=== PATIENT | female | born 1985 | race Caucasian/White ===

== ENCOUNTER 2016-11-06 10:00 | Emergency (ER) | payer OTHER ==
[2016-11-06 10:09] VITALS: BP 163/106
--- NOTE | 2016-11-06 10:48 | ED GENERAL ADULT ---
History of Present Illness General Chief Complaint: Animal/Insect Bite Stated Complaint: DOG BITE RT HAND Source: patient Exam Limitations: no limitations Vital Signs & Intake/Output Vital Signs & Intake/Output Vital Signs Date Time Temp Pulse Resp B/P B/P Pulse O2 O2 Flow FiO2 Mean Ox Delivery Rate 11/06 1009 97.6 105 20 163/106 98 Room Air Allergies Coded Allergies: No Known Allergies (11/06/16) Triage Note: PT TO ED WITH DOG BITE TO RT INDEX FINGER. STATES WAS BIT BY OWN DOG BY ACCIDENT AND DOG IS UTD WITH THEIR SHOTS. PT STATES SHE IS UNSURE OF HER LAST TETANUS SHOT. NOTED PUNCTURE WOUND TO AREA. NO BLEEDING AT THIS TIME, DSG APPLIED IN TRIAGE. PT VERY ANXIOUS STATING THERE WAS ALOT OF BLOOD, WASHCLOTH THAT CONTAINED WOUND UPON ARRIVAL TO ED HAD SCANT AMT OF BLOOD ON IT. Triage Nurses Notes Reviewed? yes : No Patient currently breastfeeds: No HPI: 30-year-old right hand dominant female with a history of PCOS presenting with dog bite to her right index finger that occurred about one hour prior to arrival. Reports that she was playing with her dog when it got startled and accidentally bit her. The dog has no history of aggressive behavior and this has never happened before. Unsure of her last tetanus. States that her dog is up-to-date on all vaccines including rabies. Past History Travel History Traveled to [place] past 21 day No Medical History Any Pertinent Medical History? see below for history Renal: PCOS Surgical History Surgical History: non-contributory Psychosocial History What is your primary language German Tobacco Use: Never used Family History Hx Contributory? No Review of Systems Review of Systems Constitutional: Reports: no symptoms. Respiratory: Reports: no symptoms. Cardiovascular: Reports: no symptoms. GI: Reports: no symptoms. Skin: Reports: see HPI. Neurological/Psychological: Reports: no symptoms. Physical Exam Physical Exam General Appearance: well developed/nourished, no apparent distress, anxious, comfortable Head: atraumatic Respiratory: normal breath sounds, lungs clear Cardiovascular: regular rate/rhythm, normal peripheral pulses Neurologic/Psych: awake, alert, oriented x 3, normal mood/affect Skin: normal color, warm/dry, on exam there are 2 subcentimeter lacerations to the right index finger, one on the dorsal aspect between the DIP and PIP joints, one on the palmar aspect between the PIP and MCP, both wounds have good hemostasis and are superficial, understood to range of motion at the DIP/PIP/MCP joints, tendons intact, normal sensation to the radial/ulnar/median nerves, motor strength 5 out of 5 in all digits and 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 No CVA/TIA Diagnosis: No Severe Sepsis Present: No Septic Shock Present: No Progress Differential Diagnoses I considered the following diagnoses in my evaluation of the patient: [ Laceration versus tendon injury versus fracture versus rabies infection] Plan of Care: Current Medications Sig/Hui Start time Last Medication Dose Stop Time Status Admin Tetanus/Diphtheria 0.5 ML ONCE ONE 11/06 1100 UNVr Toxoids Adsorbed 11/06 1101 (Decavac) Tetanus updated. No need for rabies vaccines as patient's dog is currently up- to-date on all vaccines. No indication for suturing at this time, wounds cleansed with soap and water, bacitracin applied. Wounds dressed with Telfa and gauze. Given instructions on daily wound care and strict return precautions for any signs of infection. (GUILLERMINA CAMEJO,ERLINDA) Initial ED EKG: none Departure Departure Disposition: HOME OR SELF CARE Condition: Stable Clinical Impression Primary Impression: Dog bite Secondary Impressions: Finger laceration Referrals: UNKNOWN (PCP/Family) Additional Instructions: Make sure to keep your wounds clean and dry. Change your dressing once daily as instructed in the ED. Follow up with her primary care provider in 48 hours for reevaluation. Return to the ED for any new or worsening symptoms. Departure Forms: Customer Survey General Discharge Information Critical Care Note Critical Care Note Critical Care Time: non-applicable
== END 2016-11-06 11:24 ==
LOC: ERH 10:00
DX: S61.210A Laceration without foreign body of right index finger without damage to nail, initial encounter (principal); W54.0XXA Bitten by dog, initial encounter; Y93.9 Activity, unspecified; Y92.9 Unspecified place or not applicable
CPT/HCPCS: 90471; 90714